=== PATIENT | female | born 2000 | race African-American/Black ===

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

== ENCOUNTER 2018-12-13 22:24 | Emergency (ER) | payer MEDICAID, OTHER ==
[~2018-12-13] VITALS: Ht 165.1 cm; Wt 111.6 kg
[2018-12-13 22:40] VITALS: BP 128/87
--- NOTE | 2018-12-13 22:45 | NUR ---
ED Nurse Note: Patient walked in to ER c/o lower abdominal pain 11/22. Per patient she had at the end of October, and since that she does not have her menstrual period yet. AAO x4, VSS at this time, skin is warm to touch.
--- NOTE | 2018-12-13 22:57 | Emergency Room Report ---
History of Present Illness General Chief Complaint: Abdominal Pain Source: Patient Present Illness [facility] This is a 18-year-old female with no past medical history. She presents with chief complaint of abdominal cramping pain. Said for about a week. Described pain is crampy in nature. Pain is to the lower pelvic area. No bleeding. No discharge. No urinary complaint. In October she had an elective with pills. She was bleeding for 3 weeks. Since then she had not had a normal menstruation. She did 2 test at home and was negative. She came into be evaluated to make sure everything is okay. Denies any other complaint. No fever chills. Pain is 7 out of 10. Allergies: Coded Allergies: PENICILLINS (Unverified Allergy, Unknown, 10/17/14) Patient History Past Medical History: none, see triage record, old chart reviewed Past Surgical History: none Pertinent Family History: none Social History: Denies: smoking Now: No Immunizations: other Reviewed Nursing Documentation: PMH: Agreed; PSxH: Agreed Review of Systems Eye: Denies: eye pain, blurred vision ENT: Denies: ear pain, nose congestion, throat swelling Respiratory: Denies: cough, shortness of breath Cardiovascular: Denies: chest pain, palpitations Gastrointestinal: Reports: abdominal pain; Denies: diarrhea, nausea, vomiting Musculoskeletal: Denies: back pain, joint pain Skin: Denies: rash Neurological: Denies: headache, numbness Endocrine: Denies: increased thirst, increased urine Hematologic/Lymphatic: Denies: easy bruising All Other Systems: negative except mentioned in HPI Physical Exam Vital Signs Date Time Temp Pulse Resp B/P (MAP) Pulse Ox O2 Delivery O2 Flow Rate FiO2 12/13/18 22:32 97.9 72 18 128/87 (101) 100 Room Air Vitals normal Sp02 EP Interpretation: reviewed, normal General Appearance: well appearing, no apparent distress, alert Head: normocephalic, atraumatic Eyes: bilateral eye PERRL, bilateral eye EOMI ENT: hearing grossly normal, normal pharynx Neck: full range of motion, supple, no meningismus Respiratory: chest non-tender, lungs clear, normal breath sounds Cardiovascular #1: regular rate, rhythm, no murmur Gastrointestinal: normal bowel sounds, non tender, no mass, no organomegaly, no bruit, non-distended Musculoskeletal: back normal, gait/station normal, normal range of motion Psychiatric: mood/affect normal Medical Decision Making Diagnostic Impression: Primary Impression: Pelvic pain ER Course Patient presents with pelvic pain and amenorrhea. Not . There is microscopic blood in the urine. She may be beginning of her menstruation. No evidence of acute abdomen. Will discharge home. Last Vital Signs Date Time Temp Pulse Resp B/P (MAP) Pulse Ox O2 Delivery O2 Flow Rate FiO2 12/13/18 22:40 97.9 18 128/87 100 Room Air 12/13/18 22:40 72 Status: unchanged Disposition: HOME, SELF-CARE Condition: Stable Scripts Ibuprofen* (MOTRIN*) 600 Mg Tablet 600 MG ORAL THREE TIMES A DAY, #30 TAB 0 Refills Prov: Ken Soares MD 12/13/18 Patient Instructions: Abdominal Pain, Adult Additional Instructions: Follow-up with your doctor in 7 days. Return if worse. Ken Soares MD Dec 13, 2018 22:57
[2018-12-13 23:12] LABS: APPEARANCE,URINE CLEAR; BILIRUBIN, URINE NEGATIVE (NEGATIVE); GLUCOSE, URINE (UA) NEGATIVE (NEGATIVE); KETONES,URINE NEGATIVE (NEGATIVE); LEUKOCYTE ESTERASE ,URINE 1+ (NEGATIVE); NITRITE,URINE NEGATIVE (NEGATIVE); PH,URINE 5 (4.5-8.0); PROTEIN,URINE NEGATIVE (NEGATIVE); UROBILINOGEN,URINE 1 MG/DL (0.0-1.0)
[2018-12-13 23:13] LABS: COLOR,URINE YELLOW
[2018-12-13] MEDS ORDERED: IBUPROFEN600 MG ORAL (23:20)
--- NOTE | 2018-12-13 23:25 | NUR ---
ED Nurse Note: Pt cleared by health care Provider for discharge. DC instructions/prescription was given and explained to pt and verbalized understanding of teachings. All medical deviecs such as ID band removed. Pt is AAO x4, ambulatory and left with all personal belongings.
== END 2018-12-13 23:55 | disposition home or self-care (01) ==
LOC: EMR 23:27
DX: R10.2 Pelvic and perineal pain (principal); Z88.0 Allergy status to penicillin
CPT/HCPCS: 81003; 81025; 99283